=== PATIENT | male | born 1985 | race Caucasian/White ===

== ENCOUNTER 2021-01-01 12:03 | Emergency (ER) | payer BC, OTHER ==
[2021-01-01] MEDS ORDERED: Sodium Chloride 0.9% 10 ML Syringe FLUSH PRN (12:12)
[2021-01-01 12:17] VITALS: BP 118/72; PULSE 50
[2021-01-01] MEDS ORDERED: Ondansetron 4 MG/2 ML SDV IVPUSH ONE (12:28)
[2021-01-01] MEDS ORDERED: Ketorolac 15 MG/ML SDV IVPUSH ONE (12:28)
[2021-01-01 13:11] LABS: ANION GAP 9.7 meq/L (7-15); CHLORIDE,CL 100 mmol/L (98-107); SODIUM,NA 136 mmol/L (136-145)
--- NOTE | 2021-01-01 13:21 | EDM.PDOC ---
ED HPI GENERAL MEDICAL PROBLEM - General Chief Complaint: Genitourinary Problem Stated Complaint: hematuria, groin/flank pain Time Seen by Provider: 01/01/21 12:30 Source of Information: Reports: Patient History Limitations: Reports: No Limitations - History of Present Illness INITIAL COMMENTS - FREE TEXT/NARRATIVE: Pt. presents to ER with complaints of R sided abdominal pain. Pt. states that he noticed blood in his urine and had acute flank pain this AM. He states that the discomfort radiated into abdomen anteriorly and then into the R groin/inguinial area. He was diaphoretic. Pt. denies ever having symptoms like this in the past. states that his Dad has a history of kidney stones. He states that he feels chills. He complains of nasuea but no vomiting. Denies and chest pain, shortness of breath, or rashes. By the time patient arrived at ER, pain was decreased down to a 1-2 on 1-10 scale. Onset: Today Location: Reports: Abdomen Right Upper Groin Pain Score (Numeric/FACES): 1 - Related Data Allergies Allergy/AdvReac Type Severity Reaction Status Date / Time No Known Allergies Allergy Verified 01/01/21 12:04 Home Meds: Home Meds Hydrocodone/Acetaminophen [HYDROcodone-Acetaminophen 5-325 MG] 1 each PO Q4H #18 tab 01/01/21 [Rx] Tamsulosin HCl [Flomax] 0.4 mg PO DAILY #20 cap.er.24h 01/01/21 [Rx] Past Medical History HEENT History: Reports: Allergic Rhinitis, Other (See Below) Other HEENT History: Previous LASIK therapy as below, nasal fracture in 2003 with surgery as below Respiratory History: Reports: None Gastrointestinal History: Reports: None Genitourinary History: Reports: Prostate Disorder, Other (See Below) Other Genitourinary History: Previous recurrent prostatitis Musculoskeletal History: Reports: Back Pain, Chronic, Fracture, Osteoarthritis, Other (See Below) Other Musculoskeletal History: fracture of the right forearm in 1991 which did require anesthesia for setting, L3 and L4 vertebral bodies stress fractures in 2003, left hand digit 5 fracture 1996, nasal fracture in 2003 Neurological History: Reports: None Psychiatric History: Reports: None Endocrine/Metabolic History: Reports: Other (See Below) Other Endocrine/Metabolic History: Borderline hypoglycemia Hematologic History: Reports: None Immunologic History: Reports: None Oncologic (Cancer) History: Reports: None Dermatologic History: Reports: None - Infectious Disease History Infectious Disease History: Reports: Chicken Pox, Mononucleosis - Past Surgical History Head Surgeries/Procedures: Reports: None HEENT Surgical History: Reports: LASIK, Naso-Sinus Surgery, Oral Surgery, Other (See Below) Other HEENT Surgeries/Procedures: LASIK in 2006, nasal septum repair from nasal fracture in 2003, [place] teeth extraction x4 as a teenager Cardiovascular Surgical History: Reports: None Respiratory Surgical History: Reports: None GI Surgical History: Reports: Hernia, Inguinal, Other (See Below) Other GI Surgeries/Procedures: Right inguinal hernia repair in 2002 Male Surgical History: Reports: Circumcision, Other (See Below) Other Male Surgeries/Procedures: Circumcision as an , vasectomy September 2020 Endocrine Surgical History: Reports: None Neurological Surgical History: Reports: None Musculoskeletal Surgical History: Reports: None Oncologic Surgical History: Reports: None Dermatological Surgical History: Reports: None - Past Imaging History Past Imaging History: Reports: CAT Scan Social & Family History - Tobacco Use Tobacco Use Status *Q: Never Tobacco User - Caffeine Use Caffeine Use: Reports: None - Recreational Drug Use Recreational Drug Use: No - Living Situation & Occupation Living situation: Reports: , with Family Occupation: Employed ED ROS GENERAL - Review of Systems Review Of Systems: See Below Constitutional: Reports: Chills, Diaphoresis HEENT: Reports: No Symptoms Respiratory: Reports: No Symptoms Cardiovascular: Reports: No Symptoms Endocrine: Reports: No Symptoms GI/Abdominal: Reports: Abdominal Pain : Reports: Flank Pain, Hematuria Musculoskeletal: Reports: No Symptoms Skin: Reports: No Symptoms Neurological: Reports: No Symptoms Psychiatric: Reports: No Symptoms Hematologic/Lymphatic: Reports: No Symptoms Immunologic: Reports: No Symptoms ED EXAM, GENERAL - Physical Exam Exam: See Below Exam Limited By: No Limitations General Appearance: Alert, WD/WN, No Apparent Distress Neck: Normal Inspection, Supple, Non-Tender, Full Range of Motion Respiratory/Chest: No Respiratory Distress, Lungs Clear, Normal Breath Sounds, No Accessory Muscle Use, Chest Non-Tender Cardiovascular: Normal Peripheral Pulses, Regular Rate, Rhythm, No Edema, No Gallop, No JVD, No Murmur, No Rub GI/Abdominal: Normal Bowel Sounds, Soft, Non-Tender, No Organomegaly, No Distention, No Abnormal Bruit, No Mass Extremities: Normal Inspection, Normal Range of Motion, Non-Tender, Normal Capillary Refill, No Pedal Edema Psychiatric: Normal Affect, Normal Mood Skin Exam: Warm, Dry, Intact, Normal Color, No Rash Course - Vital Signs Last Recorded V/S: Last Vital Signs Temp 35.9 C L 01/01/21 12:15 Pulse 50 L 01/01/21 12:15 Resp 15 01/01/21 12:15 BP 118/72 01/01/21 12:15 Pulse Ox 100 01/01/21 12:15 - Orders/Labs/Meds Orders: Active Orders 24 hr Category Date Time Status Peripheral IV Care [RC] . DIRECTED Care 01/01/21 12:12 Active Abdomen Pelvis wo Cont [CT] Stat Exams 01/01/21 12:58 Taken Sodium Chloride 0.9% [Saline Flush] Med 01/01/21 12:12 Active 10 ml FLUSH ASDIRECTED PRN Peripheral IV Insertion Adult [OM.PC] Routine Oth 01/01/21 12:12 Ordered Medication Orders Sodium Chloride (Sodium Chloride 0.9% 10 Ml Syringe) 10 ml FLUSH ASDIRECTED PRN PRN Reason: Keep Vein Open Last Admin: 01/01/21 12:43 Dose: 10 ml Documented by: KARLI Labs: Laboratory Tests 01/01/21 01/01/21 01/01/21 Range/Units 12:12 12:35 12:50 WBC 13.5 H (4.0-10.2) K/uL RBC 4.56 (4.33-5.41) M/uL Hgb 14.1 (13.1-16.8) g/dL Hct 41.7 (39.0-49.0) % MCV 91.4 (84.0-98.0) fL MCH 30.9 (28.2-33.3) pg MCHC 33.8 (31.7-36.0) g/dL RDW 13.3 (11.2-14.1) % Plt Count 199 (150-350) K/uL Neut % (Auto) 90.1 H (45.0-80.0) % Lymph % (Auto) 6.7 L (10.0-50.0) % [place] % (Auto) 3.0 (2.0-14.0) % Eos % (Auto) 0.1 (0.0-5.0) % Baso % (Auto) 0.1 (0.0-2.0) % Neut # (Auto) 12.14 H (1.40-7.00) K/uL Lymph # (Auto) 0.90 (0.50-3.50) K/uL Anderson # (Auto) 0.40 (0.00-1.00) K/uL Eos # (Auto) 0.02 (0.00-0.50) K/uL Baso # (Auto) 0.02 (0.00-0.20) K/uL Sodium 136 (136-145) mmol/L Potassium 3.9 (3.5-5.1) mmol/L Chloride 100 (98-107) mmol/L Carbon Dioxide 26.3 (21.0-32.0) mmol/L Anion Gap 9.7 (7-15) meq/L BUN 23 H (7-18) mg/dL Creatinine 0.97 (0.51-1.17) mg/dL Est Cr Clr Drug Dosing 110.15 mL/min Estimated GFR (MDRD) > 60 mL/min Glucose 161 H (70-99) mg/dL Calcium 8.6 (8.5-10.1) mg/dL Total Bilirubin 0.5 (0.2-1.0) mg/dL AST 22 (15-37) U/L ALT 27 (12-78) U/L Alkaline Phosphatase 49 (46-116) IU/L Total Protein 6.8 (6.4-8.2) g/dL Albumin 4.2 (3.4-5.0) g/dL Specimen Type Urincc Urine Color Dark yellow Urine Appearance Cloudy Urine pH 7.5 (5.0-9.0) Ur Specific [place] 1.020 (1.005-1.030) Urine Protein 30 H (NEGATIVE) mg/dL Urine Glucose (UA) Negative (NEGATIVE) mg/dL Urine Ketones Negative (NEGATIVE) mg/dL Urine Occult Blood Large H (NEGATIVE) Urine Nitrite Negative (NEGATIVE) Urine Bilirubin Negative (NEGATIVE) Urine Urobilinogen 0.2 (0.2-1.0) E.U./dL Ur Leukocyte Esterase Negative (NEGATIVE) Urine RBC >100 H /HPF Urine WBC 0-5 /HPF Ur Epithelial Cells Rare /LPF Urine Bacteria Not seen (NONE TO FEW) /HPF Meds: Medications Generic Name Dose Route Start Last Admin Trade Name Freq PRN Reason Stop Dose Admin Sodium Chloride 10 ml 01/01/21 12:12 01/01/21 12:43 Sodium Chloride 0.9% 10 Ml Syringe FLUSH 10 ml ASDIRECTED PRN Administration Keep Vein Open Discontinued Medications Generic Name Dose Route Start Last Admin Trade Name [place] PRN Reason Stop Dose Admin Ketorolac Tromethamine 15 mg 01/01/21 12:28 01/01/21 12:41 Ketorolac 15 Mg/Ml Sdv IVPUSH 01/01/21 12:29 15 mg ONETIME ONE Administration Ondansetron HCl 4 mg 01/01/21 12:28 01/01/21 12:42 Ondansetron 4 Mg/2 Ml Sdv IVPUSH 01/01/21 12:29 4 mg ONETIME ONE Administration - Radiology Interpretation Free Text/Narrative:: 3.2 MM stone R proximal ureter with moderate hydro Departure - Departure Time of Disposition: 14:50 Disposition: Home, Self-Care 01 Clinical Impression: Kidney stone - Discharge Information Prescriptions: Tamsulosin HCl [Flomax] 0.4 mg PO DAILY #20 cap.er.24h Hydrocodone/Acetaminophen [HYDROcodone-Acetaminophen 5-325 MG] 1 each PO Q4H #18 tab Instructions: Acetaminophen; Hydrocodone tablets or capsules, Kidney Stones, [id number], Tamsulosin capsules Referrals: PCP,None [Primary Care Provider] - Forms: ED Department Discharge Sepsis Event Note (ED) - Evaluation Sepsis Screening Result: No Definite Risk - Focused Exam Vital Signs: Vital Signs Temp Pulse Resp BP Pulse Ox 01/01/21 12:15 35.9 C L 50 L 15 118/72 100 - Problem List Review Problem List Initiated/Reviewed/Updated: Yes - My Orders Last 24 Hours: My Active Orders 01/01/21 12:12 Peripheral IV Care [RC] . DIRECTED Sodium Chloride 0.9% [Saline Flush] 10 ml FLUSH ASDIRECTED PRN Peripheral IV Insertion Adult [OM.PC] Routine 01/01/21 12:58 Abdomen Pelvis wo Cont [CT] Stat - Assessment/Plan Last 24 Hours: My Active Orders 01/01/21 12:12 Peripheral IV Care [RC] . DIRECTED Sodium Chloride 0.9% [Saline Flush] 10 ml FLUSH ASDIRECTED PRN Peripheral IV Insertion Adult [OM.PC] Routine 01/01/21 12:58 Abdomen Pelvis wo Cont [CT] Stat Plan: Ibuprofen 200mg 3 every 6 hours as needed for pain Lortab 5/325mg 1 every 4 hours as needed for pain Flomax 0.4mg 1 daily Drink plenty of fluids Strain urine, collect stones, and bring to ER for analysis. Increase consumption of H2O. Return to ER if you have pain that is not helped by oral medication, or if you are unable to hold down fluids.
== END 2021-01-01 14:57 | disposition home or self-care (01) ==
LOC: LL.ED 12:03
DX: N13.2 Hydronephrosis with renal and ureteral calculous obstruction (principal)
CPT/HCPCS: 36415; 74176; 80053; 81001; 85025; 96374; 96375; 99284-25; J1885; J2405